=== PATIENT | male | born 1940 | race Caucasian/White ===

== ENCOUNTER → 2020-08-05 | Outpatient (CLI) | payer MEDICARE ==
[~2020-08-05] MED LIST: ATOR40TA59 PO; CHOL200059 PO; CLOP75TA PO; GABA600T7 PO; ISOS30TA68 PO; LEVO50TA5 PO; PANT40TA77 PO; ROPI1TAB4 PO; TAMS0.4C97 PO; VIT1TABL34 PO; WARF-31 PO; ZOLP5TAB PO
== END ==
LOC: LAB 09:17
PROVIDERS: ATTEND Ophthalmology
DX: Z01.812 Encounter for preprocedural laboratory examination (principal); Z20.822 Contact with and (suspected) exposure to COVID-19
CPT/HCPCS: U0003

== ENCOUNTER 2020-08-07 08:36 | Day surgery (SDC) | payer MEDICARE ==
[~2020-08-07] VITALS: Ht 175.3 cm; Wt 89.0 kg
[~2020-08-07 08:36] MED LIST changes: +CIPROFLOXACIN 0.3% OPHTH SOLUTION 5ML BOTTLE. OD ONE; +CYCLOPENTOLATE 2% OPHTH SOLUTION 2ML BOTTLE. OD SCH; +IV RINGERS,LACTATED 1000ML 1,000 ML IV SCH; +LIDOCAINE 2% JELLY 6ML IN APPLICATOR. OD ONE; +PROPARACAINE 0.5% OPHTH SOLUTION 15ML BOTTLE. OD ONE
[2020-08-07] MEDS: PHENYLEPHRINE 10% OPHTH SOLUTION 5ML BOTTLE. OD SCH ×3 (09:00→09:10)
[2020-08-07] MEDS: CYCLOPENTOLATE 1% OPHTH SOLUTION 2ML BOTTLE. OD SCH ×3 (09:00→09:10)
[2020-08-07] MEDS ORDERED: MIDAZOLAM HCL/PF 2 MG/2 ML VIAL. ONE (10:46)
[2020-08-07] MEDS ORDERED: CHONDROIT-SOD-HYALURONATE KIT. ONE (10:50)
[2020-08-07] MEDS ORDERED: LIDOCAINE 1%/PHENYLEPH 1.5% PF OPHTH 1 ML VIAL. ONE (10:50)
[2020-08-07] MEDS ORDERED: BALANCED SALT IRRIG OPHTH SOLN 15 ML BOTTLE. ONE (11:17)
--- NOTE | 2020-08-07 11:23 | OP ---
DATE OF SURGERY: 08/07/2020 PREOPERATIVE DIAGNOSIS: Senile cataract, right eye. POSTOPERATIVE DIAGNOSIS: Senile cataract, right eye. PROCEDURE: Phacoemulsification with posterior chamber lens implant, right eye. ANESTHESIA: Topical with MAC. DESCRIPTION OF PROCEDURE: The patient's dilating and anesthetic drops were applied in the outpatient department and the [place] balloon cuff was used for about 10 minutes. The patient was then brought to the operating room, positioned on the table and the right eye was prepped and draped in the usual sterile manner for an intraocular procedure. A lid speculum was placed between the eyelids and the operating microscope brought into position. A paracentesis incision was made superotemporally and lidocaine injected in the anterior chamber followed by an injection of Viscoat. A 2.4 mm incision was then made temporally and a capsulorrhexis was made without difficulty. The lens nucleus was then hydrodissected and phacoemulsified with the phaco handpiece. The remaining cortex was aspirated with the I/A handpiece. The bag was then insufflated with Provisc and a posterior chamber lens injected into the bag without difficulty. The Provisc was aspirated with the I/A handpiece and then the eye was pressurized. The wound was checked for leaks and there were none. The speculum and drape were removed and Maxitrol ointment instilled in the conjunctival sac and the eye was shielded. The patient was taken to the recovery room in satisfactory condition. There were no complications. I will see the patient tomorrow in my office. K BOOGIE KIRAN MD DR: MILADYS/davian JOB#: [id number] / [id number]
[2020-08-07 11:42] VITALS: BP 159/86
== END 2020-08-07 12:36 | disposition home or self-care (01) ==
LOC: SURG 08:36 → EDUNIT# 10:30 → SURG 12:36
PROVIDERS: ATTEND Ophthalmology
DX: H25.89 Other age-related cataract (principal); I25.10 Atherosclerotic heart disease of native coronary artery without angina pectoris; I10 Essential (primary) hypertension; I48.91 Unspecified atrial fibrillation; E78.00 Pure hypercholesterolemia, unspecified; J44.9 Chronic obstructive pulmonary disease, unspecified; G47.30 Sleep apnea, unspecified; E03.9 Hypothyroidism, unspecified; K21.9 Gastro-esophageal reflux disease without esophagitis; M19.90 Unspecified osteoarthritis, unspecified site; Z86.73 Personal history of transient ischemic attack (TIA), and cerebral infarction without residual deficits; Z79.899 Other long term (current) drug therapy; Z98.890 Other specified postprocedural states; Z72.89 Other problems related to lifestyle; Z88.0 Allergy status to penicillin
CPT/HCPCS: 66984; J0171; J2250; J3490; C1780